=== PATIENT | male | born 1960 | race Two or more races ===

== ENCOUNTER 2019-01-29 08:11 | Outpatient (CLI) | payer OTHER | END 2019-01-29 08:15 | disposition home or self-care (01) | LOC: SONOGRAMA 08:11 | DX: E04.1 Nontoxic single thyroid nodule (principal) ==

== ENCOUNTER 2021-02-19 09:27 | Outpatient (CLI) | payer OTHER | END 2021-02-19 09:45 | disposition home or self-care (01) | LOC: SONOGRAMA 09:27 | PROVIDERS: ATTEND Pathology Anatomic Pathology & Clinical Pathology | DX: E04.1 Nontoxic single thyroid nodule (principal) ==

== ENCOUNTER 2022-10-18 09:32 | Outpatient (CLI) | payer OTHER | END 2022-10-18 09:37 | disposition home or self-care (01) | LOC: SONOGRAMA 09:32 | PROVIDERS: ATTEND Pathology Anatomic Pathology & Clinical Pathology | DX: D34 Benign neoplasm of thyroid gland (principal); E04.9 Nontoxic goiter, unspecified; D44.0 Neoplasm of uncertain behavior of thyroid gland; E07.9 Disorder of thyroid, unspecified ==

== ENCOUNTER 2023-05-02 10:24 | Outpatient (CLI) | payer OTHER | END 2023-05-02 10:28 | disposition home or self-care (01) | LOC: SONOGRAMA 10:24 | PROVIDERS: ATTEND Pathology Anatomic Pathology & Clinical Pathology | DX: D44.0 Neoplasm of uncertain behavior of thyroid gland (principal); E04.1 Nontoxic single thyroid nodule ==